=== PATIENT | female | born 1980 | race Caucasian/White ===

== ENCOUNTER 2017-10-21 13:18 | Emergency (ER) | payer OTHER ==
[~2017-10-21] VITALS: Ht 162.6 cm; Wt 100.2 kg
[~2017-10-21 13:18] MED LIST: SYN.05 PO
[2017-10-21 13:36] VITALS: BP 128/85
--- NOTE | 2017-10-21 13:57 | NUR ---
PATIENT TO BED 10 AT THIS TIME.
--- NOTE | 2017-10-21 14:00 | NUR ---
37f bib self with children with c/o "light-yellowish" vagina discharge with itchness x yesterday. Pt denies any vagina odor, urinary complaints, n/v/d, or fevers. Pt is , s/p on 09/16/17. Pt denies any vaginal bleeding. Pt is aox4, with steady gait. RR are even and unlabored. Pt positioned to comfort, bed down. Awaitng er md roman. VSS. Will continue to monitor.
[2017-10-21 15:11] VITALS: BP 113/77
--- NOTE | 2017-10-21 15:11 | NUR ---
Patient discharged with v/s stable. Written and verbal after care instructions given and explained. Patient alert, oriented and verbalized understanding of instructions. Ambulatory with steady gait. All questions addressed prior to discharge. ID band removed. Patient advised to follow up with PMD. Rx of DiFlucan given. Patient educated on indication of medication including possible reaction and side effects. Opportunity to ask questions provided and answered.
== END 2017-10-21 15:11 | disposition home or self-care (01) ==
LOC: MED 13:18
DX: N89.8 Other specified noninflammatory disorders of vagina (principal); I10 Essential (primary) hypertension; Z88.8 Allergy status to other drugs, medicaments and biological substances
CPT/HCPCS: 81002; 81025; 99283